=== PATIENT | female | born 1940 | race Caucasian/White ===

== ENCOUNTER 2016-02-13 14:10 | Emergency (ER) | payer MEDICARE, MEDICAID ==
[~2016-02-13] VITALS: Ht 165.1 cm; Wt 77.1 kg
[~2016-02-13 14:10] MED LIST: ACET650S12 RE; ASPI-498 OR; BENA1POW XX; DONETAB6 PO; HYDR-2549 PO; HYDRPOW88 XX; LEVE750T15 PO; LEVO50TA7 PO; METO25TA62 PO; OYST500T48 PO; PREDSUS OR; SIMV-8 PO
[2016-02-13 15:42] LABS: Basophils # (auto) 0 uL; Basophils % (auto) 0.4 % (0.0-2.0); Eosinophils # (auto) 0.5 uL; Eosinophils % (auto) 5.2 % (0.0-7.0); Hematocrit 39.3 % (36.0-46.0); Hemoglobin 13.1 g/dL (12.2-16.2); Lymphocytes # (auto) 1.9 uL; Lymphocytes % (auto) 21.4 % (10.0-50.0); Mean Corpuscular Hemoglobin 31.2 pg (28.0-32.0); Mean Corpuscular Hgb Conc. 33.2 g/dL (32.0-36.0); Mean Corpuscular Volume 93.8 fL (80.0-100.0); Mean Platelet Volume 8.4 fL (7.4-10.4); Monocytes % (auto) 10.9 % (0.0-12.0); Neutrophils # (auto) 5.6 uL; Neutrophils % (auto) 62.1 % (37.0-80.0); Platelet Count (auto) 316 10^3/uL (140-450); Red Cell Distribution Width 14.1 % (11.6-16.0)
[2016-02-13 16:01] LABS: Albumin 3.3 g/dL (3.4-5.0); Bilirubin, Total 0.2 mg/dL (0.2-1.0); Calcium 9.3 mg/dL (8.5-10.1); Magnesium 2.4 mg/dL (1.6-2.6); Potassium 3.8 mmol/L (3.5-5.1); Total Protein 7.7 g/dL (6.4-8.2)
[2016-02-13 17:23] VITALS: BP 135/59
== END 2016-02-13 17:32 | disposition home or self-care (01) ==
LOC: ER 14:10 → EDUNIT# 14:10 → ER 17:32
DX: R56.9 Unspecified convulsions (principal); G30.9 Alzheimer's disease, unspecified; F02.80 Dementia in other diseases classified elsewhere, unspecified severity, without behavioral disturbance, psychotic disturbance, mood disturbance, and anxiety; I10 Essential (primary) hypertension; I50.9 Heart failure, unspecified; E78.5 Hyperlipidemia, unspecified; Z79.82 Long term (current) use of aspirin; Z88.0 Allergy status to penicillin; Z79.899 Other long term (current) drug therapy; F17.210 Nicotine dependence, cigarettes, uncomplicated
CPT/HCPCS: 36415; 80053; 80185; 83735; 84484; 85025; 93005; 94761

== ENCOUNTER 2017-10-31 10:42 | Emergency (ER) | payer MEDICARE, MEDICAID ==
[~2017-10-31] VITALS: Ht 162.6 cm; Wt 72.6 kg
[~2017-10-31 10:42] MED LIST changes: -BENA1POW XX; +CHOL20007 PO; +CYAN100L PO; +DOCU-94 PO; +DONE10TA40 PO; -HYDRPOW88 XX; +PAR20T PO; +PHEN100C70 PO; -PREDSUS OR
[2017-10-31] MEDS ORDERED: SODIUM CHLORIDE 0.9% 1,000 ML IV ONE (11:01)
[2017-10-31 11:45] LABS: Basophils # (auto) 0.1 uL; Basophils % (auto) 1.4 % (0.0-2.0); Eosinophils # (auto) 0.5 uL; Eosinophils % (auto) 6.6 % (0.0-7.0); Hematocrit 40.4 % (36.0-46.0); Hemoglobin 13.4 g/dL (12.2-16.2); Lymphocytes # (auto) 1.7 uL; Lymphocytes % (auto) 20.7 % (10.0-50.0); Mean Corpuscular Hemoglobin 31.7 pg (28.0-32.0); Mean Corpuscular Hgb Conc. 33.3 g/dL (32.0-36.0); Mean Corpuscular Volume 95.2 fL (80.0-100.0); Monocytes # (auto) 0.7 uL; Monocytes % (auto) 9.1 % (0.0-12.0); Neutrophils # (auto) 5.1 uL; Neutrophils % (auto) 62.2 % (37.0-80.0); Nucleated Red Blood Cells % 0.1 %; Platelet Count (auto) 293 10^3/uL (140-450); Red Blood Cells 4.24 10^6/uL (4.0-5.20); Red Cell Distribution Width 13.5 % (11.8-14.3); White Blood Cell 8.1 10^3/uL (4.4-10.8)
[2017-10-31 11:58] LABS: INR 0.94 (0.9-1.15); Prothrombin Time 10.1 sec (9.27-12.13)
[2017-10-31 12:17] LABS: Anion Gap 7 (5-15); Carbon Dioxide 26 mmol/L (21-32); Chloride 104 mmol/L (98-107); Glucose 100 mg/dL (74-106); Potassium 3.7 mmol/L (3.5-5.1); Sodium 137 mmol/L (136-145)
[2017-10-31 12:18] LABS: Alanine Aminotransferase 22 U/L (13-56); Albumin 3.3 g/dL (3.4-5.0); Alkaline Phosphatase 245 U/L (45-117); Aspartate Aminotransferase 15 U/L (15-37); BUN/Creatinine Ratio 21.2; Bilirubin, Total 0.3 mg/dL (0.2-1.0); Blood Urea Nitrogen 18 mg/dL (7-18); GFR African American 84 mL/min; GFR Non-African American 69 mL/min; Total Protein 8.1 g/dL (6.4-8.2)
[2017-10-31 12:37] LABS: Urine Bacteria FEW /hpf (None Seen); Urine Blood Negative /uL (Negative); Urine Specific Gravity 1.012 (1.001-1.035); Urine WBC 3 /hpf (0 - 5)
[2017-10-31 13:37] VITALS: BP 133/59
== END 2017-10-31 13:39 | disposition home or self-care (01) ==
LOC: EDBD 10:42 → ER 10:42
DX: G40.909 Epilepsy, unspecified, not intractable, without status epilepticus (principal); N39.0 Urinary tract infection, site not specified; R41.82 Altered mental status, unspecified; I11.0 Hypertensive heart disease with heart failure; I50.9 Heart failure, unspecified; Z90.49 Acquired absence of other specified parts of digestive tract; Z90.710 Acquired absence of both cervix and uterus
CPT/HCPCS: 36415; 70450; 71045; 80053; 81001; 83880; 84484; 85025; 85610; 85730; 94761; 96360; 96361

== ENCOUNTER 2017-11-26 12:31 | Inpatient (IN) | payer MEDICARE, MEDICAID ==
[~2017-11-26] VITALS: Ht 170.2 cm; Wt 84.0 kg
[2017-11-26] MEDS ORDERED: SODIUM CHLORIDE 0.9% 1,000 ML IV ONE (12:40)
[2017-11-26 13:35] LABS: Basophils # (auto) 0.1 uL; Basophils % (auto) 1.2 % (0.0-2.0); Eosinophils # (auto) 0.5 uL; Eosinophils % (auto) 7.7 % (0.0-7.0); Hematocrit 40.1 % (36.0-46.0); Hemoglobin 13.6 g/dL (12.2-16.2); Lymphocytes # (auto) 1.7 uL; Lymphocytes % (auto) 25.6 % (10.0-50.0); Mean Corpuscular Hemoglobin 32.3 pg (28.0-32.0); Monocytes # (auto) 0.7 uL; Monocytes % (auto) 10.2 % (0.0-12.0); Neutrophils # (auto) 3.6 uL; Neutrophils % (auto) 55.3 % (37.0-80.0); Nucleated Red Blood Cells % 0.1 %; Platelet Count (auto) 304 10^3/uL (140-450); Red Blood Cells 4.22 10^6/uL (4.0-5.20); Red Cell Distribution Width 13.7 % (11.8-14.3); White Blood Cell 6.5 10^3/uL (4.4-10.8)
[2017-11-26 13:47] LABS: Urine Bacteria NONE SEEN /hpf (None Seen); Urine Blood Negative /uL (Negative); Urine Specific Gravity 1.014 (1.001-1.035); Urine WBC <1 /hpf (0 - 5)
[2017-11-26 13:56] LABS: Alanine Aminotransferase 20 U/L (13-56); Albumin 3.3 g/dL (3.4-5.0); Anion Gap 7 (5-15); Aspartate Aminotransferase 16 U/L (15-37); BUN/Creatinine Ratio 15.3; Blood Urea Nitrogen 13 mg/dL (7-18); Carbon Dioxide 28 mmol/L (21-32); Chloride 101 mmol/L (98-107); GFR African American 84 mL/min; GFR Non-African American 69 mL/min; Glucose 99 mg/dL (74-106); Potassium 4.1 mmol/L (3.5-5.1); Sodium 136 mmol/L (136-145)
[2017-11-26 14:00] LABS: Alkaline Phosphatase 279 U/L (45-117); Bilirubin, Total 0.3 mg/dL (0.2-1.0); Total Protein 8.3 g/dL (6.4-8.2)
[2017-11-26 14:01] LABS: INR 0.94 (0.9-1.15); Partial Thromboplastin Time 30.1 sec (23.78-33.04); Prothrombin Time 10.1 sec (9.27-12.13)
[2017-11-26] MEDS ORDERED: VANCOMYCIN 1GM/250ML 250 ML IV ONE (14:15)
[2017-11-26 17:35] VITALS: BP 130/66
[2017-11-26] MEDS: IPRATROPIUM BROM 0.5 MG/2.5ML INH SOL NEB SCH (17:52)
[2017-11-26] MEDS: ALBUTEROL SULF 2.5 MG/0.5ML(0.5%) NEB SOLN NEB SCH (17:53)
[2017-11-26 17:54] VITALS: BP 130/66
[2017-11-26 18:25] VITALS: BP 130/66
[2017-11-26 20:00] VITALS: BP 124/56
[2017-11-26] MEDS: DONEPEZIL HYDROCHLORIDE 5 MG TAB PO SCH (21:46)
[2017-11-26] MEDS: LEVETIRACETAM 500 MG TAB PO SCH (21:46)
[2017-11-26] MEDS: ATORVASTATIN 20 MG TAB PO SCH (21:47)
[2017-11-26 22:00] VITALS: BP 124/56
[2017-11-26] MEDS ORDERED: PHENYTOIN SODIUM 100 MG CAP PO SCH (22:00)
[2017-11-27 05:11] VITALS: BP 118/63
[2017-11-27 06:38] LABS: BUN/Creatinine Ratio 12.7; Calcium 8.6 mg/dL (8.5-10.1)
[2017-11-27] MEDS: ALBUTEROL SULF 2.5 MG/0.5ML(0.5%) NEB SOLN NEB SCH ×4 (06:54→19:08)
[2017-11-27] MEDS: IPRATROPIUM BROM 0.5 MG/2.5ML INH SOL NEB SCH ×4 (06:54→19:08)
[2017-11-27] MEDS: LEVOTHYROXINE SODIUM 50 MCG TAB PO SCH (06:57)
[2017-11-27 08:25] VITALS: BP 139/77
[2017-11-27 09:00] VITALS: BP 139/77
[2017-11-27] MEDS: ASPirin 81 mg TAB PO SCH (09:51)
[2017-11-27] MEDS: CITALOPRAM HYDROBR 20 MG TAB PO SCH (09:52)
[2017-11-27] MEDS: LEVETIRACETAM 500 MG TAB PO SCH ×2 (09:52→22:12)
[2017-11-27] MEDS: METOPROLOL SUCCINATE XL 50 MG TAB PO SCH (09:53)
[2017-11-27] MEDS: BENAZEPRIL HCL 10 MG TAB PO SCH (09:53)
[2017-11-27 13:00] VITALS: BP 117/56
[2017-11-27] MEDS ORDERED: LORazepam 2MG/ML-1ML VIAL IV PRN ×2 (14:30)
[2017-11-27 17:00] VITALS: BP 118/60
[2017-11-27 22:00] VITALS: BP 127/59
[2017-11-27] MEDS: DONEPEZIL HYDROCHLORIDE 5 MG TAB PO SCH (22:11)
[2017-11-27] MEDS: ATORVASTATIN 20 MG TAB PO SCH (22:11)
[2017-11-28 05:00] VITALS: BP 159/45
[2017-11-28] MEDS: LEVOTHYROXINE SODIUM 50 MCG TAB PO SCH (06:38)
[2017-11-28] MEDS: IPRATROPIUM BROM 0.5 MG/2.5ML INH SOL NEB SCH ×4 (07:00→18:54)
[2017-11-28] MEDS: ALBUTEROL SULF 2.5 MG/0.5ML(0.5%) NEB SOLN NEB SCH ×4 (07:00→18:54)
[2017-11-28 07:06] LABS: BUN/Creatinine Ratio 18.1; Calcium 8.4 mg/dL (8.5-10.1)
[2017-11-28 08:36] VITALS: BP 118/56
[2017-11-28] MEDS: LEVETIRACETAM 500 MG TAB PO SCH ×2 (10:01→22:38)
[2017-11-28] MEDS: ASPirin 81 mg TAB PO SCH (10:02)
[2017-11-28] MEDS: BENAZEPRIL HCL 10 MG TAB PO SCH (10:02)
[2017-11-28] MEDS: CITALOPRAM HYDROBR 20 MG TAB PO SCH (10:02)
[2017-11-28] MEDS: METOPROLOL SUCCINATE XL 50 MG TAB PO SCH (10:04)
[2017-11-28 12:28] VITALS: BP 138/70
[2017-11-28] MEDS ORDERED: NICOTINE 14 MG/24HR TOPICAL PATCH TD ONE (13:15)
[2017-11-28 17:58] VITALS: BP 120/65
[2017-11-28 22:00] VITALS: BP 112/55
[2017-11-28] MEDS: DONEPEZIL HYDROCHLORIDE 5 MG TAB PO SCH (22:38)
[2017-11-28] MEDS: ATORVASTATIN 20 MG TAB PO SCH (22:38)
[2017-11-29] MEDS: IPRATROPIUM BROM 0.5 MG/2.5ML INH SOL NEB SCH ×2 (00:38→06:36)
[2017-11-29] MEDS: ALBUTEROL SULF 2.5 MG/0.5ML(0.5%) NEB SOLN NEB SCH ×2 (00:39→06:36)
[2017-11-29 05:00] VITALS: BP 122/62
[2017-11-29] MEDS: LEVOTHYROXINE SODIUM 50 MCG TAB PO SCH (06:31)
[2017-11-29 09:00] VITALS: BP 143/62
[2017-11-29] MEDS ORDERED: NICOTINE 14 MG/24HR TOPICAL PATCH TD SCH (10:00)
[2017-11-29] MEDS: LEVETIRACETAM 500 MG TAB PO SCH (10:32)
[2017-11-29] MEDS: ASPirin 81 mg TAB PO SCH (10:32)
[2017-11-29] MEDS: METOPROLOL SUCCINATE XL 50 MG TAB PO SCH (10:33)
[2017-11-29] MEDS: BENAZEPRIL HCL 10 MG TAB PO SCH (10:33)
[2017-11-29] MEDS: CITALOPRAM HYDROBR 20 MG TAB PO SCH (10:33)
== END 2017-11-29 12:10 | DRG 100 ==
LOC: ER 12:31 → EDBD 12:31 → OVERFLOW 12:32 → WEST WING 17:25 → TELE-WESTW 21:20 → WEST WING 11-27 14:54
PROVIDERS: ADMIT Internal Medicine; ATTEND Internal Medicine
DX: G40.409 Other generalized epilepsy and epileptic syndromes, not intractable, without status epilepticus (principal); G93.41 Metabolic encephalopathy; J18.9 Pneumonia, unspecified organism; J44.0 Chronic obstructive pulmonary disease with (acute) lower respiratory infection; I13.0 Hypertensive heart and chronic kidney disease with heart failure and stage 1 through stage 4 chronic kidney disease, or unspecified chronic kidney disease; E03.9 Hypothyroidism, unspecified; E78.5 Hyperlipidemia, unspecified; F02.80 Dementia in other diseases classified elsewhere, unspecified severity, without behavioral disturbance, psychotic disturbance, mood disturbance, and anxiety; F17.210 Nicotine dependence, cigarettes, uncomplicated; G30.9 Alzheimer's disease, unspecified; I50.9 Heart failure, unspecified; N18.9 Chronic kidney disease, unspecified; T42.0X5A Adverse effect of hydantoin derivatives, initial encounter; Y92.89 Other specified places as the place of occurrence of the external cause; Z90.710 Acquired absence of both cervix and uterus; Z90.49 Acquired absence of other specified parts of digestive tract; Z88.0 Allergy status to penicillin; Z91.018 Allergy to other foods; Z79.82 Long term (current) use of aspirin; Z79.899 Other long term (current) drug therapy
CPT/HCPCS: 36415; 70450; 71045; 80048; 80053; 80185; 81001; 82542; 83605; 83880; 84443; 84484; 85025; 85610; 85730; 87040; 87077; 87186; 94640; 95819; 96360; 97163

== ENCOUNTER 2018-08-01 10:38 | Emergency (ER) | payer MEDICARE, MEDICAID ==
[~2018-08-01] VITALS: Ht 162.6 cm; Wt 79.4 kg
[2018-08-01] MEDS ORDERED: HYDROcodone-ACET 5/325MG TAB PO ONE (11:00)
[2018-08-01 12:55] VITALS: BP 119/40
== END 2018-08-01 15:01 | disposition home or self-care (01) ==
LOC: EDBD 10:38 → ER 10:38
DX: S92.331A Displaced fracture of third metatarsal bone, right foot, initial encounter for closed fracture (principal); S83.91XA Sprain of unspecified site of right knee, initial encounter; S93.401A Sprain of unspecified ligament of right ankle, initial encounter; I11.0 Hypertensive heart disease with heart failure; I50.9 Heart failure, unspecified; E78.5 Hyperlipidemia, unspecified; F17.210 Nicotine dependence, cigarettes, uncomplicated; G30.9 Alzheimer's disease, unspecified; F02.80 Dementia in other diseases classified elsewhere, unspecified severity, without behavioral disturbance, psychotic disturbance, mood disturbance, and anxiety; Z90.49 Acquired absence of other specified parts of digestive tract; Z90.710 Acquired absence of both cervix and uterus; Z88.0 Allergy status to penicillin; Z79.899 Other long term (current) drug therapy; W01.0XXA Fall on same level from slipping, tripping and stumbling without subsequent striking against object, initial encounter; Y93.89 Activity, other specified; Y92.89 Other specified places as the place of occurrence of the external cause; Y99.8 Other external cause status
CPT/HCPCS: 29505; 29515; 73564; 73610; 73630; 94761

== ENCOUNTER 2018-11-04 20:45 | Emergency (ER) | payer MEDICARE, MEDICAID ==
[~2018-11-04] VITALS: Ht 162.6 cm; Wt 81.6 kg
[2018-11-05 00:28] VITALS: BP 137/52
[2018-11-05] MEDS ORDERED: TETANUS-DIPTH-ACEL PERTUSSIS 0.5ML SYRG IM ONE (01:30)
== END 2018-11-05 02:00 | disposition home or self-care (01) ==
LOC: EDBD 20:45 → ER 20:47
DX: S06.0X1A Concussion with loss of consciousness of 30 minutes or less, initial encounter (principal); S01.112A Laceration without foreign body of left eyelid and periocular area, initial encounter; S16.1XXA Strain of muscle, fascia and tendon at neck level, initial encounter; E78.5 Hyperlipidemia, unspecified; J45.909 Unspecified asthma, uncomplicated; I10 Essential (primary) hypertension; E07.9 Disorder of thyroid, unspecified; Z90.49 Acquired absence of other specified parts of digestive tract; Z90.710 Acquired absence of both cervix and uterus; Z79.899 Other long term (current) drug therapy; Z88.0 Allergy status to penicillin; Z79.82 Long term (current) use of aspirin; W18.39XA Other fall on same level, initial encounter; Y93.89 Activity, other specified; Y99.8 Other external cause status; Y92.89 Other specified places as the place of occurrence of the external cause
CPT/HCPCS: 12011; 70450; 70486; 72125; 90471; 90715

== ENCOUNTER 2019-03-16 17:57 | Emergency (ER) | payer MEDICARE, MEDICAID ==
[~2019-03-16] VITALS: Ht 162.6 cm; Wt 78.9 kg
[~2019-03-16 17:57] MED LIST changes: -METO25TA62 PO; +METO25TA93 PO
[2019-03-16] MEDS ORDERED: methylPREDNISolone SOD SUCC 125 MG/2 ML VL IM ONE (19:00)
[2019-03-16 19:36] LABS: Basophils # (auto) 0 uL; Basophils % (auto) 0.4 % (0.0-2.0); Eosinophils # (auto) 0.9 uL; Eosinophils % (auto) 11.4 % (0.0-7.0); Hematocrit 40.5 % (36.0-46.0); Hemoglobin 13.8 g/dL (12.2-16.2); Lymphocytes % (auto) 12.2 % (10.0-50.0); Mean Corpuscular Hemoglobin 31.9 pg (28.0-32.0); Mean Corpuscular Volume 93.6 fL (80.0-100.0); Monocytes # (auto) 0.6 uL; Monocytes % (auto) 7.9 % (0.0-12.0); Neutrophils # (auto) 5.5 uL; Neutrophils % (auto) 68.1 % (37.0-80.0); Nucleated Red Blood Cells % 0.1 %; Platelet Count (auto) 320 10^3/uL (140-450); Red Blood Cells 4.32 10^6/uL (4.0-5.20); Red Cell Distribution Width 13.7 % (11.8-14.3)
[2019-03-16 19:55] LABS: Albumin 3.3 g/dL (3.4-5.0); Calcium 8.7 mg/dL (8.5-10.1); Potassium 4.2 mmol/L (3.5-5.1)
[2019-03-16 19:59] LABS: BUN/Creatinine Ratio 22.3; Bilirubin, Total 0.2 mg/dL (0.2-1.0); Total Protein 7.9 g/dL (6.4-8.2)
[2019-03-16] MEDS ORDERED: diphenhdrAMINE HCL 25 MG CAP PO ONE (20:00)
[2019-03-16 21:51] VITALS: BP 143/75
== END 2019-03-16 22:18 | disposition home or self-care (01) ==
LOC: EDBD 17:57 → EDUNIT# 17:57 → ER 18:09
DX: L25.8 Unspecified contact dermatitis due to other agents (principal); J45.909 Unspecified asthma, uncomplicated; E78.5 Hyperlipidemia, unspecified; I10 Essential (primary) hypertension; Z90.49 Acquired absence of other specified parts of digestive tract; Z90.710 Acquired absence of both cervix and uterus; Z88.0 Allergy status to penicillin; Z88.8 Allergy status to other drugs, medicaments and biological substances; Z79.899 Other long term (current) drug therapy
CPT/HCPCS: 36415; 80053; 85025; 96372; 99283; J2930

== ENCOUNTER 2019-04-21 06:10 | Day surgery (SDC) | payer MEDICARE, MEDICAID ==
[2019-04-16 11:35] LABS: Basophils # (auto) 0.1 10 ^3/uL (0-0.2); Basophils % (auto) 1.4 % (0.0-2.0); Eosinophils # (auto) 0.4 10 ^3/uL (0-0.8); Eosinophils % (auto) 4.2 % (0.0-7.0); Hematocrit 39.8 % (36.0-46.0); Hemoglobin 13.5 g/dL (12.2-16.2); Lymphocytes # (auto) 1.8 10 ^3/uL (0.4-5.4); Lymphocytes % (auto) 19.8 % (10.0-50.0); Mean Corpuscular Hemoglobin 31.7 pg (28.0-32.0); Mean Corpuscular Hgb Conc. 33.8 g/dL (32.0-36.0); Monocytes # (auto) 0.8 10 ^3/uL (0-1.3); Monocytes % (auto) 8.8 % (0.0-12.0); Neutrophils # (auto) 5.8 10 ^3/uL (1.6-8.6); Neutrophils % (auto) 65.8 % (37.0-80.0); Platelet Count (auto) 373 10^3/uL (140-450); Red Blood Cells 4.24 10^6/uL (4.0-5.20); Red Cell Distribution Width 13.8 % (11.8-14.3); White Blood Cell 8.8 10^3/uL (4.4-10.8)
[2019-04-16 11:56] LABS: INR 1.01 (0.9-1.15); Partial Thromboplastin Time 24.7 sec (23.64-32.05)
[~2019-04-21] VITALS: Ht 162.6 cm; Wt 79.4 kg
[~2019-04-21 06:10] MED LIST changes: +BENA20TA14 PO; +CITA-77 PO; -DONE10TA40 PO; -HYDR-2549 PO; +HYDR-4833 PO; +LEVE100012 PO; -LEVE750T15 PO; -PAR20T PO; -PHEN100C70 PO; +PHEN125S PO; +SOLI5TAB7 PO
[2019-04-21] MEDS ORDERED: CLINDAMYCIN 600MG IV 50 ML IV ONE (07:18)
[2019-04-21] MEDS ORDERED: LIDOCAINE 1% HCL (LOCAL ANESTH.) INJ 20ML MDV ONE (08:00)
[2019-04-21 08:02] LABS: Calcium 8.9 mg/dL (8.5-10.1); Potassium 3.8 mmol/L (3.5-5.1)
[2019-04-21] MEDS ORDERED: fentaNYL CITRATE 100 MCG/2 ML VL ONE (08:19)
[2019-04-21] MEDS ORDERED: MIDAZOLAM HCL 1MG/1ML-2 ML VIAL ONE (08:19)
[2019-04-21] MEDS ORDERED: MEPERIDINE HCL (50 MG/ML) 1 ML VIAL ONE (08:20)
[2019-04-21] MEDS ORDERED: DexAMETHasone SOD PHOS 10MG/1ML VIAL INJ ONE (08:53)
[2019-04-21] MEDS ORDERED: ETOMIDATE (2MG/ML) 20ML VIAL IV ONE (09:14)
[2019-04-21] MEDS ORDERED: PHENYLEPHRINE HCL 10 MG/ML VL ONE (09:19)
[2019-04-21] MEDS ORDERED: ePHEDrine SULFATE 50 MG/ML AMP IV PRN (10:15)
[2019-04-21] MEDS ORDERED: MORPHINE SULFATE 4 MG/ML SYR/VIAL IV PRN (10:15)
[2019-04-21] MEDS ORDERED: ONDANSETRON HCL 4 MG/2 ML VIAL IV PRN (10:15)
[2019-04-21] MEDS ORDERED: LABETALOL HCL 5 MG/ML 4ML SYRINGE IV PRN (10:15)
[2019-04-21 11:20] VITALS: BP 160/71
== END 2019-04-21 11:55 | disposition home or self-care (01) ==
LOC: SUR 06:10
PROVIDERS: ATTEND Orthopaedic Surgery
DX: S52.592A Other fractures of lower end of left radius, initial encounter for closed fracture (principal); S52.692A Other fracture of lower end of left ulna, initial encounter for closed fracture; M19.032 Primary osteoarthritis, left wrist; M85.88 Other specified disorders of bone density and structure, other site; J44.9 Chronic obstructive pulmonary disease, unspecified; F17.210 Nicotine dependence, cigarettes, uncomplicated; E66.9 Obesity, unspecified; F32.9 Major depressive disorder, single episode, unspecified; F41.9 Anxiety disorder, unspecified; Z79.82 Long term (current) use of aspirin; Z88.0 Allergy status to penicillin; Z91.018 Allergy to other foods; Z79.899 Other long term (current) drug therapy; Z90.710 Acquired absence of both cervix and uterus; Z68.30 Body mass index [BMI] 30.0-30.9, adult; Z85.42 Personal history of malignant neoplasm of other parts of uterus; Z98.890 Other specified postprocedural states; X58.XXXA Exposure to other specified factors, initial encounter; Y93.89 Activity, other specified; Y92.89 Other specified places as the place of occurrence of the external cause; Y99.8 Other external cause status
CPT/HCPCS: 20690; 25606; 25651; 36415; 73110; 80048; 85025; 85610; 85730; 93005; C1713; J1100; J2001; J2175; J2250; J2370; J3010; J3490; 76000

== ENCOUNTER 2019-06-19 18:28 | Inpatient (IN) | payer MEDICARE, MEDICAID ==
[~2019-06-19] VITALS: Ht 170.2 cm; Wt 73.0 kg
[2019-06-19] MEDS ORDERED: ACCU-CHEK COMFORT CURVE STRIP VI ONE (19:30)
[2019-06-19 20:12] LABS: Basophils # (auto) 0.1 10 ^3/uL (0-0.2); Basophils % (auto) 1.1 % (0.0-2.0); Eosinophils # (auto) 0.5 10 ^3/uL (0-0.8); Eosinophils % (auto) 6.5 % (0.0-7.0); Hematocrit 40.5 % (36.0-46.0); Hemoglobin 13.4 g/dL (12.2-16.2); Lymphocytes # (auto) 2.1 10 ^3/uL (0.4-5.4); Lymphocytes % (auto) 28.5 % (10.0-50.0); Mean Corpuscular Hemoglobin 31.5 pg (28.0-32.0); Mean Corpuscular Volume 95.6 fL (80.0-100.0); Monocytes # (auto) 0.8 10 ^3/uL (0-1.3); Monocytes % (auto) 10.6 % (0.0-12.0); Neutrophils # (auto) 3.8 10 ^3/uL (1.6-8.6); Neutrophils % (auto) 53.3 % (37.0-80.0); Nucleated Red Blood Cells % 0.1 %; Platelet Count (auto) 356 10^3/uL (140-450); Red Blood Cells 4.24 10^6/uL (4.0-5.20); Red Cell Distribution Width 13.5 % (11.8-14.3); White Blood Cell 7.2 10^3/uL (4.4-10.8)
[2019-06-19 20:32] LABS: Alanine Aminotransferase 26 U/L (13-56); Anion Gap 6 (5-15); Aspartate Aminotransferase 20 U/L (15-37); BUN/Creatinine Ratio 19.3; Blood Urea Nitrogen 17 mg/dL (7-18); Calcium 8.6 mg/dL (8.5-10.1); Carbon Dioxide 28 mmol/L (21-32); Chloride 105 mmol/L (98-107); GFR African American 80 mL/min; GFR Non-African American 66 mL/min; Glucose 87 mg/dL (74-106); Potassium 3.8 mmol/L (3.5-5.1); Sodium 139 mmol/L (136-145)
[2019-06-19 20:37] LABS: Alkaline Phosphatase 233 U/L (45-117); Bilirubin, Total 0.2 mg/dL (0.2-1.0); Total Protein 7.8 g/dL (6.4-8.2)
[2019-06-19] MEDS ORDERED: NITROGLYCERIN 0.4 MG SL TAB SL PRN (21:00)
[2019-06-19] MEDS ORDERED: MORPHINE SULF INJ 2 MG/ML SYRINGE 1ML IV PRN (21:00)
[2019-06-19] MEDS ORDERED: CYANOCOBALAMIN (B-12) 1000 MCG/1 ML VIAL IM ONE (23:30)
[2019-06-19] MEDS ORDERED: hydrALAZINE HCL 20 MG/ML VL IV PRN (23:30)
[2019-06-19] MEDS ORDERED: FUROSEMIDE 20 MG/2 ML VIAL IV ONE (23:30)
[2019-06-20] MEDS: DOXYCYCLINE 100MG/250ML 250 ML IV SCH ×3 (01:42→23:15)
[2019-06-20] MEDS: D5W/SOD CHL 0.45% 1,000 ML IV SCH ×2 (02:44→11:03)
[2019-06-20 05:00] VITALS: BP 118/54
[2019-06-20] MEDS: LEVOTHYROXINE SODIUM 50 MCG TAB PO SCH (06:17)
[2019-06-20] MEDS: PHENYTOIN 100 MG/4 ML SUSP PO SCH ×3 (06:17→21:58)
[2019-06-20] MEDS: FUROSEMIDE 20 MG/2 ML VIAL IV SCH ×2 (06:17→18:13)
[2019-06-20 09:07] LABS: Basophils # (auto) 0.1 10 ^3/uL (0-0.2); Basophils % (auto) 0.8 % (0.0-2.0); Eosinophils # (auto) 0.4 10 ^3/uL (0-0.8); Hematocrit 41.6 % (36.0-46.0); Hemoglobin 13.9 g/dL (12.2-16.2); Lymphocytes # (auto) 1.4 10 ^3/uL (0.4-5.4); Lymphocytes % (auto) 18.4 % (10.0-50.0); Mean Corpuscular Hemoglobin 31.5 pg (28.0-32.0); Mean Corpuscular Hgb Conc. 33.5 g/dL (32.0-36.0); Mean Corpuscular Volume 93.9 fL (80.0-100.0); Monocytes # (auto) 0.6 10 ^3/uL (0-1.3); Monocytes % (auto) 8.2 % (0.0-12.0); Neutrophils # (auto) 5.1 10 ^3/uL (1.6-8.6); Neutrophils % (auto) 67.6 % (37.0-80.0); Nucleated Red Blood Cells % 0.1 %; Platelet Count (auto) 362 10^3/uL (140-450); Red Blood Cells 4.43 10^6/uL (4.0-5.20); Red Cell Distribution Width 13.5 % (11.8-14.3); White Blood Cell 7.6 10^3/uL (4.4-10.8)
[2019-06-20 09:24] LABS: INR 1.02 (0.9-1.15); Partial Thromboplastin Time 28.2 sec (23.64-32.05)
[2019-06-20 09:29] VITALS: BP 135/57
[2019-06-20 09:44] LABS: Albumin 3.2 g/dL (3.4-5.0); Calcium 8.8 mg/dL (8.5-10.1); Magnesium 2.3 mg/dL (1.6-2.6); Potassium 3.9 mmol/L (3.5-5.1)
[2019-06-20 09:49] LABS: BUN/Creatinine Ratio 16.4; Bilirubin, Total 0.4 mg/dL (0.2-1.0); Phosphorus 3.1 mg/dL (2.5-4.90)
[2019-06-20] MEDS: levETIRAcetam 500 MG TAB PO SCH ×2 (10:48→21:58)
[2019-06-20] MEDS: CALCIUM W/VIT D (600MG/400IU) TAB PO SCH ×2 (10:48→18:13)
[2019-06-20] MEDS: DOCUSATE SOD 100 MG CAP PO SCH ×2 (10:48→21:57)
[2019-06-20] MEDS: ASPirin-EC 81 mg tab PO SCH (10:48)
[2019-06-20] MEDS: CITALOPRAM HYDROBR 20 MG TAB PO SCH (10:48)
[2019-06-20] MEDS: ENOXAPARIN SOD 40 MG/0.4 ML SYRINGE SC SCH (10:49)
[2019-06-20] MEDS: LISINOPRIL 20 MG TAB PO SCH (10:49)
[2019-06-20 12:57] VITALS: BP 116/53
[2019-06-20 15:05] LABS: Urine Bacteria FEW /hpf (None Seen); Urine Blood Negative /uL (Negative); Urine Mucus FEW (None Seen); Urine Specific Gravity 1.024 (1.001-1.035); Urine WBC 57 /hpf (0 - 5)
[2019-06-20 15:08] LABS: Amphetamine Screen, Urine NEGATIVE (NEGATIVE); Barbiturate Scree,Urine NEGATIVE (NEGATIVE); Benzodiazephine Screen, Urine NEGATIVE (NEGATIVE); Cannabinoid Screen, Urine NEGATIVE (NEGATIVE); Cocaine Screen, Urine NEGATIVE (NEGATIVE); Opiate Scree,Urine NEGATIVE (NEGATIVE); Phencyclidine Screen, Urine NEGATIVE (NEGATIVE)
[2019-06-20 16:42] VITALS: BP 109/55
[2019-06-20] MEDS: ATORVASTATIN 20 MG TAB PO SCH (21:58)
[2019-06-20] MEDS: OXYBUTYNIN CHL 5 MG TAB PO SCH (21:58)
[2019-06-20 22:00] VITALS: BP 133/70
[2019-06-21] MEDS: D5W/SOD CHL 0.45% 1,000 ML IV SCH ×2 (01:49→18:17)
[2019-06-21 05:00] VITALS: BP 133/71
[2019-06-21] MEDS: LEVOTHYROXINE SODIUM 50 MCG TAB PO SCH (06:36)
[2019-06-21] MEDS: FUROSEMIDE 20 MG/2 ML VIAL IV SCH ×2 (06:36→18:17)
[2019-06-21] MEDS: PHENYTOIN 100 MG/4 ML SUSP PO SCH ×3 (06:36→22:19)
[2019-06-21 06:51] LABS: Basophils # (auto) 0.1 10 ^3/uL (0-0.2); Eosinophils # (auto) 0.4 10 ^3/uL (0-0.8); Eosinophils % (auto) 5.8 % (0.0-7.0); Hematocrit 38.6 % (36.0-46.0); Hemoglobin 13.1 g/dL (12.2-16.2); Lymphocytes # (auto) 1.6 10 ^3/uL (0.4-5.4); Lymphocytes % (auto) 24.2 % (10.0-50.0); Mean Corpuscular Hemoglobin 32.1 pg (28.0-32.0); Mean Corpuscular Volume 94.4 fL (80.0-100.0); Monocytes # (auto) 0.7 10 ^3/uL (0-1.3); Monocytes % (auto) 10.1 % (0.0-12.0); Neutrophils # (auto) 3.9 10 ^3/uL (1.6-8.6); Neutrophils % (auto) 58.9 % (37.0-80.0); Nucleated Red Blood Cells % 0.1 %; Platelet Count (auto) 324 10^3/uL (140-450); Red Blood Cells 4.09 10^6/uL (4.0-5.20); Red Cell Distribution Width 13.2 % (11.8-14.3); White Blood Cell 6.6 10^3/uL (4.4-10.8)
[2019-06-21 07:10] LABS: BUN/Creatinine Ratio 18.6; Calcium 8.8 mg/dL (8.5-10.1); Potassium 3.6 mmol/L (3.5-5.1)
[2019-06-21] MEDS: DOCUSATE SOD 100 MG CAP PO SCH ×2 (09:41→22:19)
[2019-06-21] MEDS: CALCIUM W/VIT D (600MG/400IU) TAB PO SCH ×2 (09:41→18:17)
[2019-06-21] MEDS: ASPirin-EC 81 mg tab PO SCH (09:41)
[2019-06-21] MEDS: levETIRAcetam 500 MG TAB PO SCH ×2 (09:41→22:19)
[2019-06-21] MEDS: CITALOPRAM HYDROBR 20 MG TAB PO SCH (09:41)
[2019-06-21] MEDS: LISINOPRIL 20 MG TAB PO SCH (09:41)
[2019-06-21] MEDS: ENOXAPARIN SOD 40 MG/0.4 ML SYRINGE SC SCH (09:42)
[2019-06-21] MEDS: DOXYCYCLINE 100MG/250ML 250 ML IV SCH ×2 (12:34→22:20)
[2019-06-21 13:00] VITALS: BP 120/56
[2019-06-21 17:00] VITALS: BP 117/64
[2019-06-21 21:49] VITALS: BP 106/56
[2019-06-21] MEDS: OXYBUTYNIN CHL 5 MG TAB PO SCH (22:19)
[2019-06-21] MEDS: ATORVASTATIN 20 MG TAB PO SCH (22:19)
[2019-06-22 05:00] VITALS: BP 116/58
[2019-06-22 05:58] LABS: Basophils # (auto) 0.1 10 ^3/uL (0-0.2); Basophils % (auto) 1.3 % (0.0-2.0); Eosinophils # (auto) 0.3 10 ^3/uL (0-0.8); Eosinophils % (auto) 4.3 % (0.0-7.0); Hematocrit 37.7 % (36.0-46.0); Hemoglobin 12.7 g/dL (12.2-16.2); Lymphocytes # (auto) 1.5 10 ^3/uL (0.4-5.4); Lymphocytes % (auto) 21.5 % (10.0-50.0); Mean Corpuscular Hemoglobin 31.7 pg (28.0-32.0); Mean Corpuscular Hgb Conc. 33.6 g/dL (32.0-36.0); Mean Corpuscular Volume 94.4 fL (80.0-100.0); Monocytes # (auto) 0.8 10 ^3/uL (0-1.3); Neutrophils # (auto) 4.4 10 ^3/uL (1.6-8.6); Neutrophils % (auto) 61.9 % (37.0-80.0); Platelet Count (auto) 312 10^3/uL (140-450); Red Blood Cells 3.99 10^6/uL (4.0-5.20); Red Cell Distribution Width 13.2 % (11.8-14.3)
[2019-06-22 06:02] LABS: Calcium 8.4 mg/dL (8.5-10.1); Potassium 3.6 mmol/L (3.5-5.1)
[2019-06-22 06:05] LABS: BUN/Creatinine Ratio 27.3
[2019-06-22] MEDS: PHENYTOIN 100 MG/4 ML SUSP PO SCH ×2 (06:21→14:00)
[2019-06-22] MEDS: FUROSEMIDE 20 MG/2 ML VIAL IV SCH ×2 (06:21→18:19)
[2019-06-22] MEDS: D5W/SOD CHL 0.45% 1,000 ML IV SCH ×2 (06:21→18:18)
[2019-06-22] MEDS: LEVOTHYROXINE SODIUM 50 MCG TAB PO SCH (06:22)
[2019-06-22 09:00] VITALS: BP 97/49
[2019-06-22] MEDS: ASPirin-EC 81 mg tab PO SCH (09:49)
[2019-06-22] MEDS: CALCIUM W/VIT D (600MG/400IU) TAB PO SCH ×2 (09:49→18:18)
[2019-06-22] MEDS: DOCUSATE SOD 100 MG CAP PO SCH (09:49)
[2019-06-22] MEDS: CITALOPRAM HYDROBR 20 MG TAB PO SCH (09:49)
[2019-06-22] MEDS: levETIRAcetam 500 MG TAB PO SCH (09:49)
[2019-06-22] MEDS: LISINOPRIL 20 MG TAB PO SCH (09:49)
[2019-06-22] MEDS: ENOXAPARIN SOD 40 MG/0.4 ML SYRINGE SC SCH (09:50)
[2019-06-22] MEDS: DOXYCYCLINE 100MG/250ML 250 ML IV SCH (11:30)
[2019-06-22 13:00] VITALS: BP 123/57
[2019-06-22 17:00] VITALS: BP 108/57
[2019-06-22 19:19] VITALS: BP 108/57
== END 2019-06-22 20:55 | DRG 604 ==
LOC: EDBD 18:28 → ER 18:31 → TELE 18:32 → TELE-WESTW 23:19
PROVIDERS: ADMIT Hospitalist; ATTEND Internal Medicine
DX: S00.83XA Contusion of other part of head, initial encounter (principal); G92 Toxic encephalopathy; N39.0 Urinary tract infection, site not specified; E44.0 Moderate protein-calorie malnutrition; I16.9 Hypertensive crisis, unspecified; J81.1 Chronic pulmonary edema; S06.0X0A Concussion without loss of consciousness, initial encounter; G40.909 Epilepsy, unspecified, not intractable, without status epilepticus; E03.9 Hypothyroidism, unspecified; E16.2 Hypoglycemia, unspecified; E53.8 Deficiency of other specified B group vitamins; E55.9 Vitamin D deficiency, unspecified; E78.5 Hyperlipidemia, unspecified; F17.200 Nicotine dependence, unspecified, uncomplicated; F32.9 Major depressive disorder, single episode, unspecified; F41.9 Anxiety disorder, unspecified; G35 Multiple sclerosis; I10 Essential (primary) hypertension; J44.9 Chronic obstructive pulmonary disease, unspecified; S00.81XA Abrasion of other part of head, initial encounter; R29.6 Repeated falls; W01.0XXA Fall on same level from slipping, tripping and stumbling without subsequent striking against object, initial encounter; Z79.899 Other long term (current) drug therapy; Z85.42 Personal history of malignant neoplasm of other parts of uterus; Z90.49 Acquired absence of other specified parts of digestive tract; Z91.81 History of falling; Z90.710 Acquired absence of both cervix and uterus; R55 Syncope and collapse; Y93.89 Activity, other specified; Y92.89 Other specified places as the place of occurrence of the external cause; Y99.8 Other external cause status; Z68.25 Body mass index [BMI] 25.0-25.9, adult
CPT/HCPCS: 36415; 70450; 71045; 72125; 73100; 73120; 80048; 80053; 80307; 81001; 82550; 82962; 83735; 83880; 84100; 84146; 84443; 84484; 85025; 85610; 85730; 87040; 87081; 87086; 93005; 93306; G0378; J3490

== ENCOUNTER → 2019-07-22 | Day surgery (SDC) | payer MEDICARE, MEDICAID ==
[~2019-07-22] VITALS: Ht 30.5 cm; Wt 0.5 kg
[~2019-07-22] MED LIST changes: +ALBU108A5 IN; +CLINDAMYCIN 600MG IV 50 ML IV ONE; +DEXT-233 PO; +ETOMIDATE (2MG/ML) 20ML VIAL IV ONE; +HYDROmorphone HCL 2 MG/ML VL IV PRN; +IBUP-781 PO; +LIDOCAINE 1% (LOCAL ANESTH.) PF 5ml SDV ONE; +MIDAZOLAM HCL 1MG/1ML-2 ML VIAL ONE; +MIRA25TA PO; +NALOXONE HCL 0.4 MG/ML VIAL IV PRN; +ONDANSETRON HCL 4 MG/2 ML VIAL IV PRN; +ROCURONIUM 10MG/ML 10ML VIAL IV ONE; -SOLI5TAB7 PO; +SUCCINYLCHOLINE CHLORIDE 20 MG/ML 10ML VIAL IV ONE; +fentaNYL CITRATE 100 MCG/2 ML VL ONE
[2019-07-22 11:06] LABS: Basophils # (auto) 0.1 10 ^3/uL (0-0.2); Basophils % (auto) 0.8 % (0.0-2.0); Eosinophils # (auto) 0.3 10 ^3/uL (0-0.8); Eosinophils % (auto) 3.2 % (0.0-7.0); Hematocrit 42.2 % (36.0-46.0); Hemoglobin 14.2 g/dL (12.2-16.2); Lymphocytes # (auto) 1.4 10 ^3/uL (0.4-5.4); Lymphocytes % (auto) 16.3 % (10.0-50.0); Mean Corpuscular Hemoglobin 31.3 pg (28.0-32.0); Mean Corpuscular Hgb Conc. 33.5 g/dL (32.0-36.0); Mean Corpuscular Volume 93.4 fL (80.0-100.0); Monocytes # (auto) 0.6 10 ^3/uL (0-1.3); Monocytes % (auto) 6.8 % (0.0-12.0); Neutrophils # (auto) 6.2 10 ^3/uL (1.6-8.6); Neutrophils % (auto) 72.9 % (37.0-80.0); Nucleated Red Blood Cells % 0.1 %; Platelet Count (auto) 283 10^3/uL (140-450); Red Blood Cells 4.52 10^6/uL (4.0-5.20); Red Cell Distribution Width 13.4 % (11.8-14.3); White Blood Cell 8.5 10^3/uL (4.4-10.8)
[2019-07-22 11:21] LABS: Potassium 3.9 mmol/L (3.5-5.1)
[2019-07-22 11:29] LABS: BUN/Creatinine Ratio 20.9; Calcium 9.2 mg/dL (8.5-10.1)
[2019-07-22 11:30] LABS: INR 1.04 (0.9-1.15); Partial Thromboplastin Time 27.8 sec (23.64-32.05)
[2019-07-22 13:50] VITALS: BP 148/61
== END | disposition home or self-care (01) ==
LOC: SUR 09:54
PROVIDERS: ATTEND Orthopaedic Surgery
DX: T81.40XA Infection following a procedure, unspecified, initial encounter (principal); B99.8 Other infectious disease; I10 Essential (primary) hypertension; J44.9 Chronic obstructive pulmonary disease, unspecified; G40.909 Epilepsy, unspecified, not intractable, without status epilepticus; I25.10 Atherosclerotic heart disease of native coronary artery without angina pectoris; L08.0 Pyoderma; E07.9 Disorder of thyroid, unspecified; M19.90 Unspecified osteoarthritis, unspecified site; Z88.0 Allergy status to penicillin; Z79.899 Other long term (current) drug therapy; Z11.59 Encounter for screening for other viral diseases; Z98.890 Other specified postprocedural states; Y82.8 Other medical devices associated with adverse incidents; Y92.89 Other specified places as the place of occurrence of the external cause
CPT/HCPCS: 11044; 20694; 36415; 73090; 80048; 85025; 85610; 85730; J0330; J2250; J3010; J3490; U0003; 76000

== ENCOUNTER 2020-12-22 07:47 | Inpatient (IN) | payer MEDICARE, MEDICAID ==
[~2020-12-22] VITALS: Ht 162.6 cm; Wt 74.4 kg
[~2020-12-22 07:47] MED LIST changes: -CLINDAMYCIN 600MG IV 50 ML IV ONE; -DEXT-233 PO; -ETOMIDATE (2MG/ML) 20ML VIAL IV ONE; -HYDROmorphone HCL 2 MG/ML VL IV PRN; -IBUP-781 PO; +IBUP400T23 PO; -LIDOCAINE 1% (LOCAL ANESTH.) PF 5ml SDV ONE; -MIDAZOLAM HCL 1MG/1ML-2 ML VIAL ONE; -NALOXONE HCL 0.4 MG/ML VIAL IV PRN; -ONDANSETRON HCL 4 MG/2 ML VIAL IV PRN; -ROCURONIUM 10MG/ML 10ML VIAL IV ONE; -SUCCINYLCHOLINE CHLORIDE 20 MG/ML 10ML VIAL IV ONE; +[UNRECOGNIZED DRUG - CODE] PO; -fentaNYL CITRATE 100 MCG/2 ML VL ONE
[2020-12-22 10:08] LABS: Basophils # (auto) 0.1 10 ^3/uL (0-0.2); Basophils % (auto) 0.9 % (0.0-2.0); Eosinophils # (auto) 0.4 10 ^3/uL (0-0.8); Eosinophils % (auto) 4.2 % (0.0-7.0); Hematocrit 38.5 % (36.0-46.0); Hemoglobin 13.3 g/dL (12.2-16.2); Lymphocytes # (auto) 1.4 10 ^3/uL (0.4-5.4); Lymphocytes % (auto) 17.3 % (10.0-50.0); Mean Corpuscular Hemoglobin 32.7 pg (28.0-32.0); Mean Corpuscular Hgb Conc. 34.7 g/dL (32.0-36.0); Mean Corpuscular Volume 94.1 fL (80.0-100.0); Monocytes # (auto) 0.7 10 ^3/uL (0-1.3); Monocytes % (auto) 8.6 % (0.0-12.0); Neutrophils # (auto) 5.8 10 ^3/uL (1.6-8.6); Nucleated Red Blood Cells % 0.1 %; Red Blood Cells 4.09 10^6/uL (4.0-5.20); Red Cell Distribution Width 13.7 % (11.8-14.3); White Blood Cell 8.4 10^3/uL (4.4-10.8)
[2020-12-22 10:18] LABS: Albumin 3.1 g/dL (3.4-5.0); Potassium 4.1 mmol/L (3.5-5.1)
[2020-12-22 10:23] LABS: Bilirubin, Total 0.4 mg/dL (0.2-1.0); Calcium 8.8 mg/dL (8.5-10.1); Magnesium 2.4 mg/dL (1.6-2.6); Total Protein 8.1 g/dL (6.4-8.2)
[2020-12-22 10:59] LABS: Urine Bacteria FEW /hpf (None Seen); Urine Blood Negative /uL (Negative); Urine Specific Gravity 1.009 (1.001-1.035); Urine WBC 47 /hpf (0 - 5)
[2020-12-22 11:07] LABS: BUN/Creatinine Ratio 23.5
[2020-12-22] MEDS ORDERED: MORPHINE SULFATE 4 MG/ML SYR/VIAL IV ONE (15:00)
[2020-12-22] MEDS ORDERED: PROPOFOL 10 MG/ML 20 ML IV ONE (17:30)
[2020-12-22] MEDS ORDERED: ONDANSETRON HCL 4 MG/2 ML VIAL IV PRN (19:15)
[2020-12-22] MEDS ORDERED: ACETAMINOPHEN 325 MG TAB PO PRN (19:15)
[2020-12-22] MEDS ORDERED: MORPHINE SULFATE INJECTION 2 MG/ML SYRG IV PRN (19:15)
[2020-12-22] MEDS ORDERED: DOCUSATE SOD 100 MG CAP PO PRN (19:15)
[2020-12-22] MEDS ORDERED: NITROGLYCERIN 0.4 MG SL TAB SL PRN (19:15)
[2020-12-22] MEDS: HYDROcodone-ACET 5/325MG TAB PO PRN (19:52)
[2020-12-22] MEDS: SODIUM CHLORIDE 0.9% 1,000 ML IV SCH (19:52)
[2020-12-22] MEDS: ENOXAPARIN SOD 40 MG/0.4 ML SYRINGE SC SCH (21:27)
[2020-12-23 05:00] VITALS: BP 142/67
[2020-12-23 05:07] VITALS: BP 142/67
[2020-12-23 06:11] LABS: Basophils # (auto) 0.1 10 ^3/uL (0-0.2); Basophils % (auto) 0.8 % (0.0-2.0); Eosinophils # (auto) 0.5 10 ^3/uL (0-0.8); Eosinophils % (auto) 6.6 % (0.0-7.0); Hematocrit 37.8 % (36.0-46.0); Lymphocytes # (auto) 1.2 10 ^3/uL (0.4-5.4); Lymphocytes % (auto) 15.5 % (10.0-50.0); Mean Corpuscular Hgb Conc. 34.5 g/dL (32.0-36.0); Mean Corpuscular Volume 92.7 fL (80.0-100.0); Monocytes # (auto) 0.7 10 ^3/uL (0-1.3); Monocytes % (auto) 9.5 % (0.0-12.0); Neutrophils # (auto) 5.3 10 ^3/uL (1.6-8.6); Neutrophils % (auto) 67.6 % (37.0-80.0); Red Blood Cells 4.08 10^6/uL (4.0-5.20); Red Cell Distribution Width 13.8 % (11.8-14.3); White Blood Cell 7.8 10^3/uL (4.4-10.8)
[2020-12-23 06:30] LABS: Potassium 4.2 mmol/L (3.5-5.1)
[2020-12-23 06:42] LABS: Albumin 2.9 g/dL (3.4-5.0); BUN/Creatinine Ratio 22.8; Bilirubin, Total 0.5 mg/dL (0.2-1.0); Calcium 8.7 mg/dL (8.5-10.1)
[2020-12-23 09:00] VITALS: BP 140/60
[2020-12-23] MEDS: SODIUM CHLORIDE 0.9% 1,000 ML IV SCH (11:55)
[2020-12-23] MEDS ORDERED: LORazepam 0.5 MG TAB PO PRN (12:30)
[2020-12-23] MEDS: HYDROcodone-ACET 5/325MG TAB PO PRN (12:50)
[2020-12-23 13:00] VITALS: BP 130/77
[2020-12-23 17:00] VITALS: BP 158/61
[2020-12-23] MEDS: diphenhdrAMINE HCL 25 MG CAP PO SCH (21:21)
[2020-12-23] MEDS: DOCUSATE SOD 100 MG CAP PO SCH (21:28)
[2020-12-23] MEDS: ATORVASTATIN 20 MG TAB PO SCH (21:28)
[2020-12-23] MEDS: OXYBUTYNIN CHL 5 MG TAB PO SCH (21:28)
[2020-12-23] MEDS: levETIRAcetam 500 MG TAB PO SCH (21:30)
[2020-12-23] MEDS: DONEPEZIL HYDROCHLORIDE 5 MG TAB PO SCH (21:32)
[2020-12-23] MEDS: ENOXAPARIN SOD 40 MG/0.4 ML SYRINGE SC SCH (21:34)
[2020-12-23 22:00] VITALS: BP 126/55
[2020-12-23] MEDS: MEROPENEM 1GM IVPB 100 ML IV SCH (22:19)
[2020-12-24] MEDS: HYDROcodone-ACET 5/325MG TAB PO PRN ×2 (01:15→12:26)
[2020-12-24 05:39] VITALS: BP 134/71
[2020-12-24] MEDS: LEVOTHYROXINE SODIUM 50 MCG TAB PO SCH (06:48)
[2020-12-24 08:36] VITALS: BP 141/72
[2020-12-24] MEDS: diphenhdrAMINE HCL 25 MG CAP PO SCH ×2 (08:48→20:17)
[2020-12-24] MEDS: ASPirin 81 mg TAB PO SCH (10:03)
[2020-12-24] MEDS: DOCUSATE SOD 100 MG CAP PO SCH ×2 (10:03→20:16)
[2020-12-24] MEDS: MEROPENEM 1GM IVPB 100 ML IV SCH ×2 (10:03→23:24)
[2020-12-24] MEDS: levETIRAcetam 500 MG TAB PO SCH ×2 (10:11→20:20)
[2020-12-24] MEDS: METOPROLOL SUCCINATE XL 50 MG TAB PO SCH (10:12)
[2020-12-24] MEDS: BENAZEPRIL HCL 10 MG TAB PO SCH (10:12)
[2020-12-24 13:39] VITALS: BP 115/71
[2020-12-24 16:30] VITALS: BP 126/56
[2020-12-24 20:00] VITALS: BP 141/75
[2020-12-24] MEDS: OXYBUTYNIN CHL 5 MG TAB PO SCH (20:16)
[2020-12-24] MEDS: ATORVASTATIN 20 MG TAB PO SCH (20:17)
[2020-12-24] MEDS: DONEPEZIL HYDROCHLORIDE 5 MG TAB PO SCH (20:18)
[2020-12-24] MEDS: ENOXAPARIN SOD 40 MG/0.4 ML SYRINGE SC SCH (20:22)
[2020-12-24 22:00] VITALS: BP 116/52
[2020-12-25 05:00] VITALS: BP 103/59
[2020-12-25] MEDS: LEVOTHYROXINE SODIUM 50 MCG TAB PO SCH (06:21)
[2020-12-25 08:00] VITALS: BP 117/68
[2020-12-25] MEDS: diphenhdrAMINE HCL 25 MG CAP PO SCH ×2 (08:58→22:02)
[2020-12-25] MEDS: HYDROcodone-ACET 5/325MG TAB PO PRN (08:59)
[2020-12-25] MEDS: levETIRAcetam 500 MG TAB PO SCH ×2 (09:52→22:03)
[2020-12-25] MEDS: DOCUSATE SOD 100 MG CAP PO SCH ×2 (09:52→22:03)
[2020-12-25] MEDS: ASPirin 81 mg TAB PO SCH (09:52)
[2020-12-25] MEDS: BENAZEPRIL HCL 10 MG TAB PO SCH (09:53)
[2020-12-25] MEDS: METOPROLOL SUCCINATE XL 50 MG TAB PO SCH (09:53)
[2020-12-25] MEDS: MEROPENEM 1GM IVPB 100 ML IV SCH ×2 (10:35→22:46)
[2020-12-25 12:00] VITALS: BP 148/72
[2020-12-25 13:53] VITALS: BP 119/61
[2020-12-25 16:00] VITALS: BP 114/77
[2020-12-25 22:00] VITALS: BP 127/58
[2020-12-25] MEDS: DONEPEZIL HYDROCHLORIDE 5 MG TAB PO SCH (22:02)
[2020-12-25] MEDS: ATORVASTATIN 20 MG TAB PO SCH (22:03)
[2020-12-25] MEDS: OXYBUTYNIN CHL 5 MG TAB PO SCH (22:03)
[2020-12-25] MEDS: ENOXAPARIN SOD 40 MG/0.4 ML SYRINGE SC SCH (22:04)
[2020-12-26] MEDS: HYDROcodone-ACET 5/325MG TAB PO PRN ×2 (00:26→22:08)
[2020-12-26 05:00] VITALS: BP 127/64
[2020-12-26] MEDS: LEVOTHYROXINE SODIUM 50 MCG TAB PO SCH (06:55)
[2020-12-26 08:00] VITALS: BP 116/72
[2020-12-26] MEDS: MEROPENEM 1GM IVPB 100 ML IV SCH ×2 (10:27→22:06)
[2020-12-26] MEDS: diphenhdrAMINE HCL 25 MG CAP PO SCH ×2 (10:27→22:06)
[2020-12-26] MEDS: DOCUSATE SOD 100 MG CAP PO SCH ×2 (10:28→22:07)
[2020-12-26] MEDS: ASPirin 81 mg TAB PO SCH (10:28)
[2020-12-26] MEDS: levETIRAcetam 500 MG TAB PO SCH ×2 (10:28→22:07)
[2020-12-26] MEDS: METOPROLOL SUCCINATE XL 50 MG TAB PO SCH (10:29)
[2020-12-26] MEDS: BENAZEPRIL HCL 10 MG TAB PO SCH (10:29)
[2020-12-26 12:00] VITALS: BP 121/58
[2020-12-26 16:00] VITALS: BP 102/56
[2020-12-26 22:00] VITALS: BP 121/48
[2020-12-26] MEDS: DONEPEZIL HYDROCHLORIDE 5 MG TAB PO SCH (22:06)
[2020-12-26] MEDS: OXYBUTYNIN CHL 5 MG TAB PO SCH (22:07)
[2020-12-26] MEDS: ENOXAPARIN SOD 40 MG/0.4 ML SYRINGE SC SCH (22:07)
[2020-12-26] MEDS: ATORVASTATIN 20 MG TAB PO SCH (22:07)
[2020-12-27 05:54] VITALS: BP 119/68
[2020-12-27] MEDS: LEVOTHYROXINE SODIUM 50 MCG TAB PO SCH (06:26)
[2020-12-27] MEDS: BENAZEPRIL HCL 10 MG TAB PO SCH (08:46)
[2020-12-27] MEDS: METOPROLOL SUCCINATE XL 50 MG TAB PO SCH (08:46)
[2020-12-27] MEDS: HYDROcodone-ACET 5/325MG TAB PO PRN ×2 (08:52→16:47)
[2020-12-27 09:00] VITALS: BP 163/92
[2020-12-27] MEDS: diphenhdrAMINE HCL 25 MG CAP PO SCH ×3 (10:22→22:11)
[2020-12-27] MEDS: ASPirin 81 mg TAB PO SCH (10:23)
[2020-12-27] MEDS: DOCUSATE SOD 100 MG CAP PO SCH ×2 (10:23→22:49)
[2020-12-27] MEDS: levETIRAcetam 500 MG TAB PO SCH ×2 (10:24→22:50)
[2020-12-27] MEDS: MEROPENEM 1GM IVPB 100 ML IV SCH ×2 (11:10→22:49)
[2020-12-27 12:49] VITALS: BP 125/71
[2020-12-27 14:19] LABS: Folate (Folic Acid) > 24.00 ng/mL (5.38-24)
[2020-12-27 16:56] VITALS: BP 139/69
[2020-12-27 22:00] VITALS: BP 120/56
[2020-12-27] MEDS: OXYBUTYNIN CHL 5 MG TAB PO SCH (22:49)
[2020-12-27] MEDS: DONEPEZIL HYDROCHLORIDE 5 MG TAB PO SCH (22:49)
[2020-12-27] MEDS: ENOXAPARIN SOD 40 MG/0.4 ML SYRINGE SC SCH (22:50)
[2020-12-27] MEDS: ATORVASTATIN 20 MG TAB PO SCH (22:50)
[2020-12-28 05:00] VITALS: BP 133/73
[2020-12-28] MEDS: LEVOTHYROXINE SODIUM 50 MCG TAB PO SCH (06:21)
[2020-12-28 09:08] VITALS: BP 125/75
[2020-12-28] MEDS: ASPirin 81 mg TAB PO SCH (09:37)
[2020-12-28] MEDS: BENAZEPRIL HCL 10 MG TAB PO SCH (09:38)
[2020-12-28] MEDS: levETIRAcetam 500 MG TAB PO SCH (09:39)
[2020-12-28] MEDS: METOPROLOL SUCCINATE XL 50 MG TAB PO SCH (09:39)
[2020-12-28] MEDS: MEROPENEM 1GM IVPB 100 ML IV SCH (09:40)
[2020-12-28] MEDS: diphenhdrAMINE HCL 25 MG CAP PO SCH (09:40)
[2020-12-28] MEDS: DOCUSATE SOD 100 MG CAP PO SCH (09:40)
[2020-12-28 13:00] VITALS: BP 113/49
[2020-12-28 16:23] VITALS: BP 125/75
[2020-12-28 16:55] VITALS: BP 112/57
== END 2020-12-28 17:41 | DRG 560 ==
LOC: EDBD 07:47 → ER 07:47 → TELE 19:06 → TELE-WESTW 23:13
PROVIDERS: ADMIT Nurse Practitioner; ATTEND Nurse Practitioner
PROC: 0RSJXZZ Reposition Right Shoulder Joint, External Approach (ICD-10-PCS; principal; 2020-12-22)
DX: T84.028A Dislocation of other internal joint prosthesis, initial encounter (principal); N39.0 Urinary tract infection, site not specified; G40.209 Localization-related (focal) (partial) symptomatic epilepsy and epileptic syndromes with complex partial seizures, not intractable, without status epilepticus; Z20.822 Contact with and (suspected) exposure to COVID-19; E03.9 Hypothyroidism, unspecified; E78.5 Hyperlipidemia, unspecified; F02.80 Dementia in other diseases classified elsewhere, unspecified severity, without behavioral disturbance, psychotic disturbance, mood disturbance, and anxiety; G30.9 Alzheimer's disease, unspecified; I12.9 Hypertensive chronic kidney disease with stage 1 through stage 4 chronic kidney disease, or unspecified chronic kidney disease; J44.9 Chronic obstructive pulmonary disease, unspecified; N18.9 Chronic kidney disease, unspecified; Z96.611 Presence of right artificial shoulder joint; W18.39XA Other fall on same level, initial encounter; Y79.2 Prosthetic and other implants, materials and accessory orthopedic devices associated with adverse incidents; Z79.899 Other long term (current) drug therapy; Z90.710 Acquired absence of both cervix and uterus; Z90.49 Acquired absence of other specified parts of digestive tract; Z86.61 Personal history of infections of the central nervous system; Z85.42 Personal history of malignant neoplasm of other parts of uterus; Y92.89 Other specified places as the place of occurrence of the external cause; Z99.3 Dependence on wheelchair; Z88.0 Allergy status to penicillin; Z91.018 Allergy to other foods; Y93.89 Activity, other specified; Y99.8 Other external cause status
CPT/HCPCS: 23650; 36415; 70450; 70551; 71045; 72125; 73020; 73030; 80053; 80061; 81001; 82306; 82607; 82746; 83735; 83880; 84443; 84484; 85025; 87081; 87426; 93005; 93306; 95819; 96361; 96374; 97163; G0378; J2185; J2704

== ENCOUNTER 2021-11-19 08:57 | Emergency (ER) | payer MEDICARE, MEDICAID ==
[~2021-11-19] VITALS: Ht 162.6 cm; Wt 88.0 kg
[2021-11-19] MEDS ORDERED: HYDROmorphone HCL 2 MG/ML VL/or syr IV ONE (10:45)
[2021-11-19] MEDS ORDERED: SODIUM CHLORIDE 0.9% 1,000 ML IV ONE (10:45)
[2021-11-19] MEDS ORDERED: ONDANSETRON HCL 4 MG/2 ML VIAL IV ONE (10:45)
[2021-11-19 11:12] LABS: Basophils # (auto) 0 10 ^3/uL (0-0.2); Basophils % (auto) 0.6 % (0.0-2.0); Eosinophils # (auto) 0.1 10 ^3/uL (0-0.8); Eosinophils % (auto) 1.9 % (0.0-7.0); Hematocrit 33.9 % (36.0-46.0); Hemoglobin 11.2 g/dL (12.2-16.2); Lymphocytes # (auto) 0.6 10 ^3/uL (0.4-5.4); Lymphocytes % (auto) 8.8 % (10.0-50.0); Mean Corpuscular Hemoglobin 29.8 pg (28.0-32.0); Mean Corpuscular Hgb Conc. 33.1 g/dL (32.0-36.0); Mean Corpuscular Volume 89.9 fL (80.0-100.0); Monocytes # (auto) 0.6 10 ^3/uL (0-1.3); Monocytes % (auto) 8.3 % (0.0-12.0); Neutrophils # (auto) 5.8 10 ^3/uL (1.6-8.6); Neutrophils % (auto) 80.4 % (37.0-80.0); Nucleated Red Blood Cells % 0.1 %; Red Blood Cells 3.77 10^6/uL (4.0-5.20); Red Cell Distribution Width 14.4 % (11.8-14.3); White Blood Cell 7.2 10^3/uL (4.4-10.8)
[2021-11-19 11:21] LABS: INR 1.02 (0.9-1.15); Partial Thromboplastin Time 28.9 sec (24.6-33.4)
[2021-11-19 12:29] LABS: Calcium 8.3 mg/dL (8.5-10.1); Magnesium 2.5 mg/dL (1.6-2.6); Potassium 4.3 mmol/L (3.5-5.1)
[2021-11-19 12:33] LABS: BUN/Creatinine Ratio 16.7; Bilirubin, Total 0.3 mg/dL (0.2-1.0)
[2021-11-19] MEDS ORDERED: OMEP-263 PO (14:36)
[2021-11-19] MEDS ORDERED: DICL50TA2 PO (14:36)
[2021-11-19 17:30] VITALS: BP 118/65
== END 2021-11-19 17:40 | disposition home or self-care (01) ==
LOC: ER 08:57 → EDBD 08:57 → ER 17:40
DX: S42.201A Unspecified fracture of upper end of right humerus, initial encounter for closed fracture (principal); E46 Unspecified protein-calorie malnutrition; F03.90 Unspecified dementia, unspecified severity, without behavioral disturbance, psychotic disturbance, mood disturbance, and anxiety; I11.0 Hypertensive heart disease with heart failure; I50.9 Heart failure, unspecified; J44.9 Chronic obstructive pulmonary disease, unspecified; E03.9 Hypothyroidism, unspecified; Z68.33 Body mass index [BMI] 33.0-33.9, adult; Z90.49 Acquired absence of other specified parts of digestive tract; Z90.710 Acquired absence of both cervix and uterus; Z79.82 Long term (current) use of aspirin; Z79.1 Long term (current) use of non-steroidal anti-inflammatories (NSAID); Z79.899 Other long term (current) drug therapy; Z88.0 Allergy status to penicillin; Z91.018 Allergy to other foods; Z20.822 Contact with and (suspected) exposure to COVID-19; W18.39XA Other fall on same level, initial encounter; Y93.89 Activity, other specified; Y92.89 Other specified places as the place of occurrence of the external cause; Y99.8 Other external cause status
CPT/HCPCS: 36415; 71045; 73030; 80053; 83735; 85025; 85610; 85730; 87426; 93005; 96361; 96374; 96375; 99285; J1170; J2405; J7030

== ENCOUNTER 2022-02-25 05:28 | Inpatient (IN) | payer MEDICARE, MEDICAID ==
[~2022-02-25] VITALS: Ht 160 cm; Wt 91.9 kg
[~2022-02-25 05:28] MED LIST changes: +DICL50TA2 PO; +OMEP-263 PO
[2022-02-25] MEDS ORDERED: SODIUM CHLORIDE 0.9% 1,000 ML IV ONE ×2 (06:45→07:30)
[2022-02-25 07:01] LABS: Basophils # (auto) 0.1 10 ^3/uL (0-0.2); Basophils % (auto) 0.8 % (0.0-2.0); Eosinophils # (auto) 0.2 10 ^3/uL (0-0.8); Eosinophils % (auto) 2.5 % (0.0-7.0); Hematocrit 33.6 % (36.0-46.0); Hemoglobin 11.1 g/dL (12.2-16.2); Lymphocytes % (auto) 13.7 % (10.0-50.0); Mean Corpuscular Hemoglobin 29.9 pg (28.0-32.0); Mean Corpuscular Hgb Conc. 33.2 g/dL (32.0-36.0); Mean Corpuscular Volume 90.1 fL (80.0-100.0); Monocytes # (auto) 0.7 10 ^3/uL (0-1.3); Monocytes % (auto) 10.4 % (0.0-12.0); Neutrophils # (auto) 5.1 10 ^3/uL (1.6-8.6); Neutrophils % (auto) 72.6 % (37.0-80.0); Red Blood Cells 3.72 10^6/uL (4.0-5.20)
[2022-02-25 07:02] LABS: INR 1.08 (0.9-1.15); Partial Thromboplastin Time 31.6 sec (24.6-33.4)
[2022-02-25 07:21] LABS: Albumin 2.5 g/dL (3.4-5.0); Calcium 8.5 mg/dL (8.5-10.1); Potassium 3.9 mmol/L (3.5-5.1)
[2022-02-25 07:33] LABS: Bilirubin, Total 0.4 mg/dL (0.2-1.0); Total Protein 6.9 g/dL (6.4-8.2)
[2022-02-25] MEDS ORDERED: cefTRIAXone 1GM/50ML D5W 50 ML IV ONE (15:15)
[2022-02-25 16:09] LABS: Lactic Acid w/Reflex 2.3 mmol/L (0.4-2.0)
[2022-02-25] MEDS ORDERED: MORPHINE SULFATE INJ 2 MG/ml SYRG IV PRN (16:45)
[2022-02-25] MEDS ORDERED: NITROGLYCERIN 0.4 MG SL TAB SL PRN (16:45)
[2022-02-25] MEDS: PIPERACILLIN-TAZOB 3.375GM 100 ML IV SCH (18:24)
[2022-02-26] MEDS: PIPERACILLIN-TAZOB 3.375GM 100 ML IV SCH ×4 (00:14→19:51)
[2022-02-26 04:42] LABS: Urine Bacteria NONE SEEN /hpf (None Seen); Urine Blood Negative /uL (Negative); Urine Specific Gravity 1.037 (1.001-1.035); Urine WBC 4 /hpf (0 - 5)
[2022-02-26 08:08] LABS: Basophils % (auto) 0.6 % (0.0-2.0); Eosinophils # (auto) 0.2 10 ^3/uL (0-0.8); Mean Corpuscular Volume 90.4 fL (80.0-100.0)
[2022-02-26 08:09] LABS: Basophils # (auto) 0.1 10 ^3/uL (0-0.2); Eosinophils % (auto) 2.3 % (0.0-7.0); Hematocrit 33.6 % (36.0-46.0); Hemoglobin 10.7 g/dL (12.2-16.2); Lymphocytes # (auto) 0.9 10 ^3/uL (0.4-5.4); Lymphocytes % (auto) 10.8 % (10.0-50.0); Mean Corpuscular Hemoglobin 28.7 pg (28.0-32.0); Mean Corpuscular Hgb Conc. 31.7 g/dL (32.0-36.0); Monocytes # (auto) 0.8 10 ^3/uL (0-1.3); Monocytes % (auto) 10.6 % (0.0-12.0); Neutrophils % (auto) 75.7 % (37.0-80.0); Nucleated Red Blood Cells % 0.1 %; Red Blood Cells 3.72 10^6/uL (4.0-5.20); Red Cell Distribution Width 15.2 % (11.8-14.3)
[2022-02-26 08:18] LABS: Albumin 2.6 g/dL (3.4-5.0); BUN/Creatinine Ratio 20.8; Calcium 8.8 mg/dL (8.5-10.1); Potassium 3.9 mmol/L (3.5-5.1)
[2022-02-26 08:20] LABS: Bilirubin, Total 0.4 mg/dL (0.2-1.0); Total Protein 7.5 g/dL (6.4-8.2)
[2022-02-26] MEDS ORDERED: IPRATROPIUM BROM 0.5 MG/2.5ML INH SOL NEB PRN (09:15)
[2022-02-26] MEDS ORDERED: ALBUTEROL SULF 2.5 MG/0.5ML(0.5%) NEB SOLN NEB PRN (09:15)
[2022-02-26] MEDS ORDERED: ASPirin-EC 81 mg tab PO SCH (10:00)
[2022-02-26] MEDS ORDERED: EPINEPHrine HCL 0.5 ML NEB NEB ONE (11:15)
[2022-02-26] MEDS: levETIRAcetam 500 MG TAB PO SCH ×2 (11:17→22:53)
[2022-02-26] MEDS: BENAZEPRIL HCL 10 MG TAB PO SCH (11:19)
[2022-02-26] MEDS: LEVOTHYROXINE SODIUM 50 MCG TAB PO SCH (11:20)
[2022-02-26] MEDS: PANTOPRAZOLE 40 MG TAB PO SCH (11:20)
[2022-02-26] MEDS: METOPROLOL SUCCINATE XL 50 MG TAB PO SCH (11:29)
[2022-02-26 13:41] VITALS: BP 152/62
[2022-02-26] MEDS: IPRATROPIUM BROM 0.5 MG/2.5ML INH SOL NEB SCH ×3 (14:00→22:44)
[2022-02-26] MEDS: ALBUTEROL MEDNEB 2.5 mg/3ml NEB NEB SCH ×3 (14:00→22:44)
[2022-02-26 22:17] VITALS: BP 114/52
[2022-02-26] MEDS: DONEPEZIL HYDROCHLORIDE 5 MG TAB PO SCH (22:53)
[2022-02-26] MEDS: ATORVASTATIN 20 MG TAB PO SCH (22:54)
[2022-02-27] MEDS: IPRATROPIUM BROM 0.5 MG/2.5ML INH SOL NEB SCH ×6 (02:28→22:20)
[2022-02-27] MEDS: ALBUTEROL MEDNEB 2.5 mg/3ml NEB NEB SCH ×6 (02:28→22:20)
[2022-02-27 05:00] VITALS: BP 117/53
[2022-02-27] MEDS: PIPERACILLIN-TAZOB 3.375GM 100 ML IV SCH ×5 (05:37→23:32)
[2022-02-27] MEDS: levETIRAcetam 500 MG TAB PO SCH ×2 (08:50→22:15)
[2022-02-27] MEDS: LEVOTHYROXINE SODIUM 50 MCG TAB PO SCH (08:50)
[2022-02-27] MEDS: PANTOPRAZOLE 40 MG TAB PO SCH (08:50)
[2022-02-27] MEDS: METOPROLOL SUCCINATE XL 50 MG TAB PO SCH (08:52)
[2022-02-27] MEDS: BENAZEPRIL HCL 10 MG TAB PO SCH (08:52)
[2022-02-27 08:58] VITALS: BP 100/47
[2022-02-27 13:00] VITALS: BP 106/43
[2022-02-27 17:28] VITALS: BP 98/54
[2022-02-27] MEDS: DONEPEZIL HYDROCHLORIDE 5 MG TAB PO SCH (22:15)
[2022-02-27] MEDS: ATORVASTATIN 20 MG TAB PO SCH (22:15)
[2022-02-27 23:40] VITALS: BP 109/55
[2022-02-28] MEDS: ALBUTEROL MEDNEB 2.5 mg/3ml NEB NEB SCH ×6 (02:27→22:00)
[2022-02-28] MEDS: IPRATROPIUM BROM 0.5 MG/2.5ML INH SOL NEB SCH ×6 (02:27→22:00)
[2022-02-28 04:45] VITALS: BP 145/65
[2022-02-28] MEDS: PIPERACILLIN-TAZOB 3.375GM 100 ML IV SCH ×3 (05:37→17:54)
[2022-02-28 08:00] VITALS: BP 120/50
[2022-02-28] MEDS: levETIRAcetam 500 MG TAB PO SCH ×2 (08:32→22:30)
[2022-02-28] MEDS: PANTOPRAZOLE 40 MG TAB PO SCH (08:33)
[2022-02-28] MEDS: LEVOTHYROXINE SODIUM 50 MCG TAB PO SCH (08:33)
[2022-02-28] MEDS: METOPROLOL SUCCINATE XL 50 MG TAB PO SCH (08:37)
[2022-02-28] MEDS: BENAZEPRIL HCL 10 MG TAB PO SCH (08:37)
[2022-02-28 11:40] LABS: Basophils # (auto) 0 10 ^3/uL (0-0.2); Basophils % (auto) 0.4 % (0.0-2.0); Eosinophils # (auto) 0.3 10 ^3/uL (0-0.8); Eosinophils % (auto) 3.6 % (0.0-7.0); Hematocrit 32.2 % (36.0-46.0); Hemoglobin 10.3 g/dL (12.2-16.2); Lymphocytes % (auto) 11.2 % (10.0-50.0); Mean Corpuscular Hemoglobin 29.3 pg (28.0-32.0); Mean Corpuscular Hgb Conc. 32.1 g/dL (32.0-36.0); Mean Corpuscular Volume 91.2 fL (80.0-100.0); Monocytes % (auto) 11.5 % (0.0-12.0); Neutrophils # (auto) 6.4 10 ^3/uL (1.6-8.6); Neutrophils % (auto) 73.3 % (37.0-80.0); Red Blood Cells 3.53 10^6/uL (4.0-5.20); Red Cell Distribution Width 15.2 % (11.8-14.3); White Blood Cell 8.8 10^3/uL (4.4-10.8)
[2022-02-28 12:01] LABS: Albumin 2.2 g/dL (3.4-5.0); Calcium 8.5 mg/dL (8.5-10.1); Potassium 3.7 mmol/L (3.5-5.1)
[2022-02-28 12:06] LABS: BUN/Creatinine Ratio 18.5; Bilirubin, Total 0.5 mg/dL (0.2-1.0); Total Protein 7.1 g/dL (6.4-8.2)
[2022-02-28 13:00] VITALS: BP 120/50
[2022-02-28] MEDS ORDERED: IOHEXOL 300 MG/ML 100ML BOTTLE IJ ONE (16:30)
[2022-02-28 17:00] VITALS: BP 109/52
[2022-02-28 22:00] VITALS: BP 115/49
[2022-02-28] MEDS: DONEPEZIL HYDROCHLORIDE 5 MG TAB PO SCH (22:29)
[2022-02-28] MEDS: ATORVASTATIN 20 MG TAB PO SCH (22:30)
[2022-03-01] MEDS: PIPERACILLIN-TAZOB 3.375GM 100 ML IV SCH ×4 (00:25→18:43)
[2022-03-01] MEDS: IPRATROPIUM BROM 0.5 MG/2.5ML INH SOL NEB SCH ×6 (02:00→22:05)
[2022-03-01] MEDS: ALBUTEROL MEDNEB 2.5 mg/3ml NEB NEB SCH ×6 (02:00→22:05)
[2022-03-01 05:00] VITALS: BP 137/52
[2022-03-01 05:30] LABS: Basophils # (auto) 0 10 ^3/uL (0-0.2); Basophils % (auto) 0.4 % (0.0-2.0); Eosinophils # (auto) 0.4 10 ^3/uL (0-0.8); Eosinophils % (auto) 4.1 % (0.0-7.0); Hematocrit 31.6 % (36.0-46.0); Hemoglobin 10.6 g/dL (12.2-16.2); Lymphocytes # (auto) 0.7 10 ^3/uL (0.4-5.4); Lymphocytes % (auto) 7.9 % (10.0-50.0); Mean Corpuscular Hemoglobin 29.8 pg (28.0-32.0); Mean Corpuscular Hgb Conc. 33.5 g/dL (32.0-36.0); Mean Corpuscular Volume 88.8 fL (80.0-100.0); Monocytes % (auto) 11.5 % (0.0-12.0); Neutrophils # (auto) 6.8 10 ^3/uL (1.6-8.6); Neutrophils % (auto) 76.1 % (37.0-80.0); Nucleated Red Blood Cells % 0.1 %; Red Blood Cells 3.55 10^6/uL (4.0-5.20)
[2022-03-01 05:40] LABS: Potassium 4.2 mmol/L (3.5-5.1)
[2022-03-01 05:48] LABS: BUN/Creatinine Ratio 21.3; Calcium 8.3 mg/dL (8.5-10.1)
[2022-03-01 09:00] VITALS: BP 101/42
[2022-03-01] MEDS: LEVOTHYROXINE SODIUM 50 MCG TAB PO SCH (09:04)
[2022-03-01] MEDS: levETIRAcetam 500 MG TAB PO SCH ×2 (09:04→22:26)
[2022-03-01] MEDS: BENAZEPRIL HCL 10 MG TAB PO SCH ×2 (09:05→09:22)
[2022-03-01] MEDS: METOPROLOL SUCCINATE XL 50 MG TAB PO SCH ×2 (09:06→09:23)
[2022-03-01] MEDS: PANTOPRAZOLE 40 MG TAB PO SCH (09:06)
[2022-03-01 11:19] VITALS: BP 107/42
[2022-03-01 13:00] VITALS: BP 121/50
[2022-03-01] MEDS ORDERED: IOHEXOL 300 MG/ML 100ML BOTTLE IJ ONE (16:38)
[2022-03-01] MEDS ORDERED: GADOTERATE MEG 10 MMOL/20ml INJ (0.5MMOL/ml) IV ONE (16:54)
[2022-03-01 17:00] VITALS: BP 125/48
[2022-03-01] MEDS ORDERED: ALBUTEROL MEDNEB 2.5 mg/3ml NEB ONE (17:58)
[2022-03-01 22:00] VITALS: BP 113/63
[2022-03-01] MEDS: ATORVASTATIN 20 MG TAB PO SCH (22:25)
[2022-03-01] MEDS: DONEPEZIL HYDROCHLORIDE 5 MG TAB PO SCH (22:25)
[2022-03-02] MEDS: IPRATROPIUM BROM 0.5 MG/2.5ML INH SOL NEB SCH ×6 (02:27→22:03)
[2022-03-02] MEDS: ALBUTEROL MEDNEB 2.5 mg/3ml NEB NEB SCH ×6 (02:27→22:03)
[2022-03-02] MEDS: PIPERACILLIN-TAZOB 3.375GM 100 ML IV SCH ×3 (02:44→17:35)
[2022-03-02 05:00] VITALS: BP 128/61
[2022-03-02 08:59] VITALS: BP 102/57
[2022-03-02 09:51] LABS: INR 1.17 (0.9-1.15); Partial Thromboplastin Time 34.8 sec (24.6-33.4)
[2022-03-02] MEDS: METOPROLOL SUCCINATE XL 50 MG TAB PO SCH (10:00)
[2022-03-02] MEDS: levETIRAcetam 500 MG TAB PO SCH ×2 (10:01→21:35)
[2022-03-02] MEDS: BENAZEPRIL HCL 10 MG TAB PO SCH (10:02)
[2022-03-02] MEDS: PANTOPRAZOLE 40 MG TAB PO SCH (10:02)
[2022-03-02] MEDS: LEVOTHYROXINE SODIUM 50 MCG TAB PO SCH (10:02)
[2022-03-02 13:49] VITALS: BP 99/50
[2022-03-02 16:32] VITALS: BP 112/53
[2022-03-02] MEDS: DONEPEZIL HYDROCHLORIDE 5 MG TAB PO SCH (21:35)
[2022-03-02] MEDS: ATORVASTATIN 20 MG TAB PO SCH (21:35)
[2022-03-02 22:00] VITALS: BP 114/58
[2022-03-03] MEDS: ALBUTEROL MEDNEB 2.5 mg/3ml NEB NEB SCH ×6 (02:09→22:01)
[2022-03-03] MEDS: IPRATROPIUM BROM 0.5 MG/2.5ML INH SOL NEB SCH ×6 (02:09→22:01)
[2022-03-03] MEDS: PIPERACILLIN-TAZOB 3.375GM 100 ML IV SCH ×3 (02:30→18:44)
[2022-03-03 05:00] VITALS: BP 111/58
[2022-03-03 08:33] VITALS: BP 103/52
[2022-03-03 09:43] VITALS: BP 103/52
[2022-03-03] MEDS: levETIRAcetam 500 MG TAB PO SCH ×2 (09:52→22:17)
[2022-03-03] MEDS: LEVOTHYROXINE SODIUM 50 MCG TAB PO SCH (09:53)
[2022-03-03] MEDS: BENAZEPRIL HCL 10 MG TAB PO SCH (09:53)
[2022-03-03] MEDS: METOPROLOL SUCCINATE XL 50 MG TAB PO SCH (09:53)
[2022-03-03] MEDS: PANTOPRAZOLE 40 MG TAB PO SCH (09:53)
[2022-03-03 12:33] VITALS: BP 111/53
[2022-03-03 16:56] VITALS: BP 96/54
[2022-03-03 21:45] VITALS: BP 109/56
[2022-03-03] MEDS: DONEPEZIL HYDROCHLORIDE 5 MG TAB PO SCH (22:17)
[2022-03-03] MEDS: ATORVASTATIN 20 MG TAB PO SCH (22:17)
[2022-03-04] MEDS: ALBUTEROL MEDNEB 2.5 mg/3ml NEB NEB SCH ×6 (02:22→21:30)
[2022-03-04] MEDS: IPRATROPIUM BROM 0.5 MG/2.5ML INH SOL NEB SCH ×6 (02:22→21:30)
[2022-03-04] MEDS: PIPERACILLIN-TAZOB 3.375GM 100 ML IV SCH ×3 (02:50→18:02)
[2022-03-04 04:32] VITALS: BP 132/73
[2022-03-04 09:00] VITALS: BP 114/45
[2022-03-04] MEDS: METOPROLOL SUCCINATE XL 50 MG TAB PO SCH (10:00)
[2022-03-04] MEDS: levETIRAcetam 500 MG TAB PO SCH ×2 (10:26→23:04)
[2022-03-04] MEDS: BENAZEPRIL HCL 10 MG TAB PO SCH (10:27)
[2022-03-04] MEDS: PANTOPRAZOLE 40 MG TAB PO SCH (10:27)
[2022-03-04] MEDS: LEVOTHYROXINE SODIUM 50 MCG TAB PO SCH (10:27)
[2022-03-04 13:20] VITALS: BP 124/61
[2022-03-04 15:09] VITALS: BP 124/61
[2022-03-04 17:00] VITALS: BP 124/59
[2022-03-04 22:00] VITALS: BP 111/47
[2022-03-04] MEDS: DONEPEZIL HYDROCHLORIDE 5 MG TAB PO SCH (23:03)
[2022-03-04] MEDS: ATORVASTATIN 20 MG TAB PO SCH (23:03)
[2022-03-05] MEDS: ALBUTEROL MEDNEB 2.5 mg/3ml NEB NEB SCH ×5 (02:00→18:42)
[2022-03-05] MEDS: IPRATROPIUM BROM 0.5 MG/2.5ML INH SOL NEB SCH ×5 (02:00→18:42)
[2022-03-05] MEDS: PIPERACILLIN-TAZOB 3.375GM 100 ML IV SCH ×3 (02:11→18:31)
[2022-03-05 05:00] VITALS: BP 126/91
[2022-03-05 08:45] VITALS: BP 104/53
[2022-03-05] MEDS: levETIRAcetam 500 MG TAB PO SCH (10:44)
[2022-03-05] MEDS: LEVOTHYROXINE SODIUM 50 MCG TAB PO SCH (10:44)
[2022-03-05] MEDS: PANTOPRAZOLE 40 MG TAB PO SCH (10:44)
[2022-03-05] MEDS: METOPROLOL SUCCINATE XL 50 MG TAB PO SCH (10:45)
[2022-03-05] MEDS: BENAZEPRIL HCL 10 MG TAB PO SCH (10:45)
[2022-03-05 12:40] VITALS: BP 120/53
[2022-03-05 16:30] VITALS: BP 120/49
[2022-03-05 17:43] VITALS: BP 120/49
== END 2022-03-05 21:06 | DRG 186 ==
LOC: ER 05:28 → EDBD 05:28 → TELE 16:37 → TELE-WESTW 02-26 21:41
PROVIDERS: ADMIT Internal Medicine; ATTEND Internal Medicine
PROC: 0W9B30Z Drainage of Left Pleural Cavity with Drainage Device, Percutaneous Approach (ICD-10-PCS; principal; 2022-02-26)
PROC: 0W9B3ZZ Drainage of Left Pleural Cavity, Percutaneous Approach (ICD-10-PCS; 2022-03-05)
DX: J90 Pleural effusion, not elsewhere classified (principal); J18.9 Pneumonia, unspecified organism; J96.01 Acute respiratory failure with hypoxia; J44.0 Chronic obstructive pulmonary disease with (acute) lower respiratory infection; J44.1 Chronic obstructive pulmonary disease with (acute) exacerbation; F02.84 Dementia in other diseases classified elsewhere, unspecified severity, with anxiety; E11.9 Type 2 diabetes mellitus without complications; E66.9 Obesity, unspecified; E78.5 Hyperlipidemia, unspecified; G40.909 Epilepsy, unspecified, not intractable, without status epilepticus; I50.9 Heart failure, unspecified; E88.09 Other disorders of plasma-protein metabolism, not elsewhere classified; R91.1 Solitary pulmonary nodule; E03.9 Hypothyroidism, unspecified; Z20.822 Contact with and (suspected) exposure to COVID-19; I11.0 Hypertensive heart disease with heart failure; G30.9 Alzheimer's disease, unspecified; Z96.619 Presence of unspecified artificial shoulder joint; Z66 Do not resuscitate; Z88.0 Allergy status to penicillin; Z85.42 Personal history of malignant neoplasm of other parts of uterus; Z68.33 Body mass index [BMI] 33.0-33.9, adult; Z51.5 Encounter for palliative care; Z80.3 Family history of malignant neoplasm of breast; Z85.41 Personal history of malignant neoplasm of cervix uteri; Z86.61 Personal history of infections of the central nervous system; Z87.891 Personal history of nicotine dependence; Z90.710 Acquired absence of both cervix and uterus; Z90.49 Acquired absence of other specified parts of digestive tract; Z79.899 Other long term (current) drug therapy
CPT/HCPCS: 36415; 71045; 71250; 71260; 72147; 74177; 76604; 76942; 80048; 80053; 81001; 83605; 83735; 83880; 83986; 84443; 84484; 85025; 85610; 85730; 87040; 87070; 87081; 87205; 87426; 89051; 93005; 93306; 94640; 96360; G0378; J0696; J2543